=== PATIENT | female | born 1950 | race Caucasian/White ===

== ENCOUNTER 2017-08-25 08:22 | Emergency (ER) | payer OTHER ==
[~2017-08-25] VITALS: Ht 160 cm; Wt 58.5 kg
[2017-08-25 08:30] VITALS: Ht 160 cm; Wt 58.5 kg
[2017-08-25 11:47] VITALS: BP 128/68
== END 2017-08-25 11:47 | disposition home or self-care (01) ==
LOC: ED 08:22
DX: J11.1 Influenza due to unidentified influenza virus with other respiratory manifestations (principal); I10 Essential (primary) hypertension; E11.9 Type 2 diabetes mellitus without complications; E78.00 Pure hypercholesterolemia, unspecified
CPT/HCPCS: 87804; J1885

== ENCOUNTER 2018-05-24 16:30 | Emergency (ER) | payer OTHER, MEDICAID ==
[~2018-05-24] VITALS: Ht 154.9 cm; Wt 59.4 kg
[2018-05-24 16:48] VITALS: BP 140/81
== END 2018-05-24 19:10 | disposition home or self-care (01) ==
LOC: ED 16:30
DX: S52.502D Unspecified fracture of the lower end of left radius, subsequent encounter for closed fracture with routine healing (principal); I10 Essential (primary) hypertension; E11.9 Type 2 diabetes mellitus without complications; E78.00 Pure hypercholesterolemia, unspecified; W19.XXXD Unspecified fall, subsequent encounter
CPT/HCPCS: J1885

== ENCOUNTER 2018-06-10 20:47 | Emergency (ER) | payer OTHER, MEDICAID ==
[2018-06-10 21:28] LABS: BASOPHIL % 0.6 % (0-2); PLATELET COUNT 259 x10^3mcL (130-400); RED CELL DISTRIBUTION WIDTH 13.7 % (11.5-14.5)
[2018-06-10 21:34] LABS: CARBON DIOXIDE 26.7 mmol/L (21-32); CREATININE SERUM 1.2 mg/dL (0.6-1.0); POTASSIUM SERUM 4.5 mmol/L (3.5-5.1)
[2018-06-10 21:39] LABS: ALBUMIN 3.5 g/dL (3.4-5.0); BILIRUBIN TOTAL 0.31 mg/dL (0.20-1.00); TOTAL PROTEIN, SERUM 7.3 g/dL (6.4-8.2)
[2018-06-10 23:55] VITALS: BP 142/46
== END 2018-06-10 23:55 | disposition home or self-care (01) ==
LOC: ED 20:47
PROVIDERS: Emergency Medicine
DX: K59.00 Constipation, unspecified (principal); I10 Essential (primary) hypertension; E11.9 Type 2 diabetes mellitus without complications; E78.00 Pure hypercholesterolemia, unspecified
CPT/HCPCS: 36415; J7030

== ENCOUNTER 2018-10-21 05:45 | Emergency (ER) | payer OTHER, MEDICAID ==
[~2018-10-21] VITALS: Ht 154.9 cm; Wt 59.9 kg
[2018-10-21 05:48] VITALS: Ht 154.9 cm; Wt 59.9 kg
[2018-10-21 08:10] VITALS: BP 124/72
== END 2018-10-21 08:44 | disposition home or self-care (01) ==
LOC: ED 05:45
DX: M54.42 Lumbago with sciatica, left side (principal); M54.16 Radiculopathy, lumbar region; I10 Essential (primary) hypertension; E11.9 Type 2 diabetes mellitus without complications; E78.00 Pure hypercholesterolemia, unspecified

== ENCOUNTER 2018-11-17 09:15 | Emergency (ER) | payer OTHER, MEDICAID ==
[~2018-11-17] VITALS: Ht 157.5 cm; Wt 63.5 kg
[2018-11-17 09:23] VITALS: Ht 157.5 cm; Wt 63.5 kg
[2018-11-17 13:46] VITALS: BP 114/63
== END 2018-11-17 11:40 | disposition home or self-care (01) ==
LOC: ED 09:15
DX: M54.32 Sciatica, left side (principal); I10 Essential (primary) hypertension; E11.9 Type 2 diabetes mellitus without complications; E78.00 Pure hypercholesterolemia, unspecified
CPT/HCPCS: J2270; Q0162